=== PATIENT | female | born 1985 | race Caucasian/White ===

== ENCOUNTER 2017-03-19 01:34 | Emergency (ER) | payer MEDICAID ==
[~2017-03-19] VITALS: Ht 170.2 cm; Wt 78.1 kg
[~2017-03-19 01:34] MED LIST: LANTUS100 MG/ML SC; LEVOTHYROXIN125 MCG PO; NOVOLOG100 IU/1 M SC; TESSALON PER100 MG PO; ZPAK PO
[2017-03-19] MEDS ORDERED: LANTUS100 UNIT/M SC (01:48)
[2017-03-19 02:58] LABS: HEMATOCRIT 34.4 % (37.0-47.0); HEMOGLOBIN 11.6 g/dl (12.0-16.0); IMMATURE GRANULOCYTES 0.2 % (0.0-1.0); MEAN CELL VOLUME 89.4 fL CALC (80.0-100.0); MEAN CORPUSCULAR HGB 30.1 pG CALC (26.0-32.0); MEAN CORPUSCULAR HGB CONC 33.7 g/L CALC (32.0-36.0); NEUT# 4.32 thou/uL (2.00-7.15); RED BLOOD COUNT 3.85 mill/uL (4.20-5.60)
[2017-03-19 03:19] LABS: URINE BILIRUBIN - DIPSTICK NEGATIVE (NEGATIVE); URINE BLOOD DIPSTICK MODERATE (NEGATIVE); URINE CLARITY CLEAR; URINE COLOR YELLOW; URINE GLUCOSE - DIPSTICK 250 mg/dL (NEGATIVE); URINE KETONE NEGATIVE (NEGATIVE); URINE LEUK ESTERASE NEGATIVE (NEGATIVE); URINE NITRITE - DIPSTICK NEGATIVE (Negative); URINE PROTEIN - DIPSTICK NEGATIVE (NEG-TRACE); URINE UROBILINOGEN - DIPSTICK 0.2 E.U./dL (0.2)
[2017-03-19 03:19] LABS: ALBUMIN 4.4 g/dL (3.2-5.0); ALKALINE PHOSPHATASE 53 u/l (38-126); ANION GAP 16 (6-22 (CALC)); BILIRUBIN, TOTAL 0.4 mg/dL (0.0-1.4); BUN 16 mg/dL (7-17); BUN/CREATININE RATIO 25 (12-20 (CALC)); CALCIUM 9.6 mg/dL (8.4-10.2); CARBON DIOXIDE 26 mmol/l (22-30); CHLORIDE 103 mmol/l (95-108); CREATININE 0.6 mg/dL (0.5-1.0); GFR > 60 ML/MIN (>=60 (CALC)); GFR FOR AFR.AMER. > 60 ML/MIN (>=60 (CALC)); GLUCOSE 201 mg/dL (65-105); POTASSIUM 4.2 mmol/l (3.5-5.1); SGOT/AST 24 u/l (14-36); SGPT/ALT 29 u/l (9-52); SODIUM 141 mmol/l (137-146); TOTAL PROTEIN 7.6 g/dL (6.3-8.2)
[2017-03-19 03:47] LABS: URINE MUCUS FEW hpf (NONE-FEW); URINE RBC 0-2 RBC/hpf (0-5); URINE SQUAMOUS EPITHELIAL CELL FEW EPI/hpf (0-FEW); URINE WBC 0-2 WBC/hpf (0-5)
[2017-03-19] MEDS ORDERED: ULTRAM50 M1 PO (04:28)
[2017-03-19 04:54] VITALS: BP 98/59
== END 2017-03-19 04:55 | disposition home or self-care (01) | DRG 761 ==
LOC: ED 01:34
DX: N94.6 Dysmenorrhea, unspecified (principal); E07.9 Disorder of thyroid, unspecified; E11.9 Type 2 diabetes mellitus without complications; F17.210 Nicotine dependence, cigarettes, uncomplicated; K76.9 Liver disease, unspecified
CPT/HCPCS: Q9967

== ENCOUNTER 2017-07-24 12:11 | Inpatient (IN) | payer MEDICAID ==
[~2017-07-24] VITALS: Ht 170.2 cm; Wt 80.0 kg
[~2017-07-24 12:11] MED LIST changes: +LANTUS100 UNIT/M SC; +ULTRAM50 M1 PO
[2017-07-24] MEDS ORDERED: LEVOTHYROXIN125 MCG PO ×2 (12:20→13:12)
--- NOTE | 2017-07-24 12:20 | NUR ---
PT TO ROOM FOR TREATMENT IN STABE CONDITION
--- NOTE | 2017-07-24 12:30 | NUR ---
INTRODUCED SELF TO PT. PT REPORT WEAKNESS AND N/V X 1 DAY AFTER NOT HAVING INSULIN FOR 4 DAYS. ACCU CHECK 419 UPON ARRIVAL. PATIENT VSS. MD AWARE OF PT CONDITION.
--- NOTE | 2017-07-24 12:40 | NUR ---
PATIENT WAS WHEELED TO THE BATHROOM. URINE SPECIMEN OBTAINED. PATIENT REPORTING VAGINAL BLEEDING. LMP WAS 07/12/17. NOTIFIED.
[2017-07-24 13:06] LABS: HEMATOCRIT 37.2 % (37.0-47.0); HEMOGLOBIN 12.7 g/dl (12.0-16.0); IMMATURE GRANULOCYTES 0.4 % (0.0-1.0); MEAN CELL VOLUME 89.6 fL CALC (80.0-100.0); MEAN CORPUSCULAR HGB 30.6 pG CALC (26.0-32.0); MEAN CORPUSCULAR HGB CONC 34.1 g/L CALC (32.0-36.0); RED BLOOD COUNT 4.15 mill/uL (4.20-5.60); RED CELL DISTRI WIDTH 12.4 % (11.5-15.5)
[2017-07-24] MEDS ORDERED: HUMULIN 70/30 SC (13:14)
--- NOTE | 2017-07-24 13:15 | NUR ---
PATIENT RESTING COMFORTABLY IN STRETCHER, REPORTS CONTINUED WEAKNESS, DENIES ANY NAUSEA AT THIS TIME. PATIENT AWARE OF PENDING RESULTS. WILL CONTINUE TO MONITOR.
[2017-07-24 13:19] LABS: ALBUMIN 5.2 g/dL (3.2-5.0); ALKALINE PHOSPHATASE 84 u/l (38-126); BILIRUBIN, TOTAL 0.6 mg/dL (0.0-1.4); BUN 16 mg/dL (7-17); BUN/CREATININE RATIO 21 (12-20 (CALC)); CALCIUM 9.3 mg/dL (8.4-10.2); CHLORIDE 101 mmol/l (95-108); CREATININE 0.8 mg/dL (0.5-1.0); GFR > 60 ML/MIN (>=60 (CALC)); GFR FOR AFR.AMER. > 60 ML/MIN (>=60 (CALC)); GLUCOSE 448 mg/dL (65-105); LIPASE 49 u/l (23-300); POTASSIUM 4.7 mmol/l (3.5-5.1); SGOT/AST 28 u/l (14-36); SGPT/ALT 37 u/l (9-52); SODIUM 136 mmol/l (137-146); TOTAL PROTEIN 8.6 g/dL (6.3-8.2)
[2017-07-24 13:19] LABS: URINE BLOOD DIPSTICK LARGE (NEGATIVE); URINE COLOR YELLOW; URINE GLUCOSE - DIPSTICK >=1000 mg/dL (NEGATIVE); URINE KETONE >=80 mg/dL (NEGATIVE); URINE LEUK ESTERASE NEGATIVE (NEGATIVE); URINE NITRITE - DIPSTICK NEGATIVE (Negative); URINE PH 5.5 (4.5-8.0); URINE PROTEIN - DIPSTICK TRACE mg/dL (NEG-TRACE); URINE SPECIFIC GRAVITY 1.025; URINE UROBILINOGEN - DIPSTICK 0.2 E.U./dL (0.2)
[2017-07-24 13:26] LABS: URINE BILIRUBIN - DIPSTICK SMALL (NEGATIVE); URINE CLARITY SLIGHT CLOUDY
[2017-07-24 13:26] LABS: ANION GAP 32 (6-22 (CALC)); CARBON DIOXIDE 8 mmol/l (22-30)
[2017-07-24 13:29] LABS: URINE EPITHELIAL CELLS MODERATE EPI/hpf (0-FEW)
[2017-07-24 13:30] LABS: URINE RBC 25-50 RBC/hpf (0-5)
--- NOTE | 2017-07-24 13:52 | NUR ---
PATIENT FAMILY AT BEDSIDE. PATIENT DENIES ANY NEEDS AT THIS TIME. CALL WHITE WITHIN REACH.
--- NOTE | 2017-07-24 14:18 | NUR ---
IV FLUIDS INFUSING AT 999 MLS/HR WITH NO DIFFICULTY. IV SITE FREE FROM REDNESS OR EDEMA. PATIENT AWARE OF PENDING ADMISSION. WILL CONTINUE TO MONITOR.
--- NOTE | 2017-07-24 14:37 | NUR ---
ACCUCHECK 393, IV REGULAR INSULIN STARTED AT 4 UNITS/HR. PATIENT AWARE OF WAIT TIME AND PENDING ADMISSION.
--- NOTE | 2017-07-24 14:58 | NUR ---
REPORT CALLED TO ALBERTO ALFARO IN ICU.
--- NOTE | 2017-07-24 15:05 | NUR ---
DR FRAZIER AT BEDSIDE.
--- NOTE | 2017-07-24 15:14 | NUR ---
ASSISSTED PT TO BEDSIDE COMMODE.
[2017-07-24 15:20] LABS: POTASSIUM 4.8 mmol/l (3.5-5.1)
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
[2017-07-24 15:30] VITALS: BP 102/73
--- NOTE | 2017-07-24 15:32 | NUR ---
Admission Note Report Given to: ALBERTO ALFARO Transported by: Wheelchair X Stretcher Transported with: X Nurse Transporter X Patent IV O2 X Stockroom Inventory Clerk PATIENT TRANSPORTED TO ICU BED 8. BEDSIDE REPORT GIVEN TO JONAS HUERTA LPN. PATIENT ALERT AND ORIENTED X 3.
[2017-07-24 15:45] VITALS: BP 99/65
[2017-07-24 16:00] VITALS: BP 98/66
[2017-07-24 16:15] VITALS: BP 99/64
--- NOTE | 2017-07-24 16:49 | NUR ---
PT RESTING OFFERS NO NEW COMPLAINTS, TELE CONTINUES TO READ SR RATE IN THE 70'S BP SLIGHTYL HYPOTENSIVE, TRENDING SAME IN ER. NOTIFIED OF LAB WORK EARLIER, ORDERS ALREADY IN PLACE.
--- NOTE | 2017-07-24 18:05 | NUR ---
PT REMAINS NPO EXCEPT WATER, IVF CONTINUE AT PRESCRIBED RATE AND INSULIN GTT CONTINUES PER PROTOCOL, CALL WHITE WITHIN REACH. ORAL FLUIDS (WATER) PROVIDED AT PT REQUEST.
[2017-07-24 19:02] LABS: POTASSIUM 3.5 mmol/l (3.5-5.1)
--- NOTE | 2017-07-24 19:05 | NUR ---
awake. denies c/o. air conditioning unit tester shows sinus rhythm. #20 [place] infusing. awaiting new ivf order to be put in computor by [facility]. up to [facility]. voided well. fall precautions cont.
--- NOTE | 2017-07-24 19:40 | NUR ---
neeta @ [facility] called. requested new order for ivf that was faxed @ [phone] be put in computor. admits "system down right now." motor vehicles supervisor notified of need for ivf.
[2017-07-24 20:00] VITALS: BP 95/59
--- NOTE | 2017-07-24 20:50 | NUR ---
dr daugherty called this newswriter. updated on pts condition. orders rec'd.
--- NOTE | 2017-07-24 21:00 | NUR ---
turkey sandwich given as requested.
--- NOTE | 2017-07-24 22:00 | NUR ---
watching tv. no distress. playground monitor shows sinus rhythm.
[2017-07-24 23:00] VITALS: BP 102/65
--- NOTE | 2017-07-24 23:16 | NUR ---
lab here. blood drawn.
[2017-07-24 23:36] LABS: POTASSIUM 4.2 mmol/l (3.5-5.1)
[2017-07-25] VITALS (14 sets, daily range): BP systolic 81–107; BP diastolic 48–70
--- NOTE | 2017-07-25 00:01 | NUR ---
eyes closed. no distress. youth nutritional monitor shows sinus rhythm.
--- NOTE | 2017-07-25 02:00 | NUR ---
resting quietly. resps even & unlabored. no apparent distress.
--- NOTE | 2017-07-25 04:00 | NUR ---
lab here. blood drawn.
[2017-07-25 04:26] LABS: HEMATOCRIT 31.7 % (37.0-47.0); HEMOGLOBIN 10.9 g/dl (12.0-16.0); MEAN CELL VOLUME 89.3 fL CALC (80.0-100.0); MEAN CORPUSCULAR HGB 30.7 pG CALC (26.0-32.0); MEAN CORPUSCULAR HGB CONC 34.4 g/L CALC (32.0-36.0); RED BLOOD COUNT 3.55 mill/uL (4.20-5.60); RED CELL DISTRI WIDTH 12.5 % (11.5-15.5)
[2017-07-25 04:37] LABS: ANION GAP 17 (6-22 (CALC)); BUN 10 mg/dL (7-17); BUN/CREATININE RATIO 17 (12-20 (CALC)); CALCIUM 8.3 mg/dL (8.4-10.2); CALCULATED LDLCHOLESTEROL 159 mg/dL (62-129 (CALC)); CARBON DIOXIDE 12 mmol/l (22-30); CHLORIDE 111 mmol/l (95-108); CHOLESTEROL HDL RATIO 5.2 (<4.4 (CALC)); CREATININE 0.6 mg/dL (0.5-1.0); GFR > 60 ML/MIN (>=60 (CALC)); GFR FOR AFR.AMER. > 60 ML/MIN (>=60 (CALC)); GLUCOSE 307 mg/dL (65-105); HDL CHOLESTEROL 44 mg/dL (>=40); SODIUM 135 mmol/l (137-146); TOTAL CHOLESTEROL 226 mg/dl (0-199); TOTAL TRIGLYCERIDES 117 mg/dl (30-149); VLDL CHOLESTROL 23 mg/dl (1-41 (CALC))
--- NOTE | 2017-07-25 05:53 | NUR ---
NO ACUTE CHANGE IN CONDITION THIS SHIFT. MONITOR SHOWS SINUS RHYTHM.
--- NOTE | 2017-07-25 06:45 | NUR ---
REPORT RECEIVED FROM ARI CORTEZ. PT RESTING QUIETLY WITH EYES CLOSED. AROUSES EASILY. ACCUCHECK IS 383. 5 UNITS OF NOVOLOG GIVEN. NS IV FLUIDS RESTARTED WELL. PT AMBULATORY TO [facility]. CALL LIGHT WITHIN REACH. INSTRUCTED PT TO CALL FOR ASSISTANCE. STATES UNDERSTANDING.
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
[2017-07-25 12:33] LABS: POTASSIUM 4.1 mmol/l (3.5-5.1)
[2017-07-25] MEDS ORDERED: LANTUS100 UNIT/M SC (13:00)
[2017-07-25] MEDS ORDERED: ADLT ASA LOW81 MG PO (13:00)
[2017-07-25] MEDS ORDERED: LIPITOR20 MG PO (13:00)
[2017-07-25] MEDS ORDERED: NOVOLOG FL100 UNIT/M SC (13:00)
== END 2017-07-25 14:01 | disposition home or self-care (01) | DRG 639 ==
LOC: ED 12:11 → ED-I 13:12 → ED 14:33 → ICU 14:34
PROVIDERS: Family Medicine; ADMIT Internal Medicine; ATTEND Internal Medicine
DX: E10.10 Type 1 diabetes mellitus with ketoacidosis without coma (principal); E03.9 Hypothyroidism, unspecified; E78.5 Hyperlipidemia, unspecified; F17.210 Nicotine dependence, cigarettes, uncomplicated; Z59.1 Inadequate housing; Z79.4 Long term (current) use of insulin

== ENCOUNTER 2017-10-23 13:26 | Emergency (ER) | payer MEDICAID ==
[~2017-10-23] VITALS: Ht 170.2 cm; Wt 80.0 kg
[~2017-10-23 13:26] MED LIST changes: +ADLT ASA LOW81 MG PO; +HUMULIN 70/30 SC; +LIPITOR20 MG PO; +NOVOLOG FL100 UNIT/M SC
[2017-10-23 14:36] LABS: HEMATOCRIT 33.3 % (37.0-47.0); HEMOGLOBIN 11.2 g/dl (12.0-16.0); IMMATURE GRANULOCYTES 0.3 % (0.0-1.0); MEAN CORPUSCULAR HGB 31.3 pG CALC (26.0-32.0); MEAN CORPUSCULAR HGB CONC 33.6 g/L CALC (32.0-36.0); NEUT# 6.6 thou/uL (2.00-7.15); RED BLOOD COUNT 3.58 mill/uL (4.20-5.60); RED CELL DISTRI WIDTH 13.2 % (11.5-15.5)
[2017-10-23 14:38] LABS: URINE BILIRUBIN - DIPSTICK NEGATIVE (NEGATIVE); URINE BLOOD DIPSTICK MODERATE (NEGATIVE); URINE COLOR YELLOW; URINE GLUCOSE - DIPSTICK >=1000 mg/dL (NEGATIVE); URINE KETONE 15 mg/dL (NEGATIVE); URINE LEUK ESTERASE NEGATIVE (NEGATIVE); URINE NITRITE - DIPSTICK NEGATIVE (Negative); URINE PH 5.5 (4.5-8.0); URINE PROTEIN - DIPSTICK NEGATIVE (NEG-TRACE); URINE SPECIFIC GRAVITY 1.015; URINE UROBILINOGEN - DIPSTICK 0.2 E.U./dL (0.2)
[2017-10-23 14:39] LABS: URINE CLARITY CLEAR
[2017-10-23 14:42] LABS: BARBITURATES NEGATIVE (NEGATIVE); COCAINE NEGATIVE (NEGATIVE); METHADONE NEGATIVE (NEGATIVE); OXCYCODONE NEGATIVE (NEGATIVE); TETRAHYDROCANNABIONOL NEGATIVE (NEGATIVE); TRICYLIC ANTIDEPRESSANTS NEGATIVE (NEGATIVE)
[2017-10-23 14:48] LABS: URINE SQUAMOUS EPITHELIAL CELL FEW EPI/hpf (0-FEW); URINE WBC 0-2 WBC/hpf (0-5)
[2017-10-23 14:50] LABS: ALBUMIN 4.2 g/dL (3.2-5.0); ALKALINE PHOSPHATASE 98 u/l (38-126); AMYLASE < 30 u/l (30-110); ANION GAP 16 (6-22 (CALC)); BILIRUBIN, TOTAL 0.3 mg/dL (0.0-1.4); BUN 17 mg/dL (7-17); BUN/CREATININE RATIO 24 (12-20 (CALC)); CALCIUM 9.4 mg/dL (8.4-10.2); CARBON DIOXIDE 24 mmol/l (22-30); CHLORIDE 102 mmol/l (95-108); CREATININE 0.7 mg/dL (0.5-1.0); GFR > 60 ML/MIN (>=60 (CALC)); GFR FOR AFR.AMER. > 60 ML/MIN (>=60 (CALC)); LIPASE 99 u/l (23-300); SGOT/AST 39 u/l (14-36); SGPT/ALT 50 u/l (9-52); SODIUM 137 mmol/l (137-146); TOTAL PROTEIN 6.8 g/dL (6.3-8.2)
[2017-10-23 14:54] LABS: GLUCOSE 544 mg/dL (65-105)
[2017-10-23] MEDS ORDERED: ULTRAM50 M1 PO (18:11)
[2017-10-23] MEDS ORDERED: FLEXERIL PO (18:11)
[2017-10-23 19:36] VITALS: BP 113/71
== END 2017-10-23 19:47 | disposition home or self-care (01) | DRG 392 ==
LOC: ED 13:26
PROVIDERS: Emergency Medicine
DX: R10.31 Right lower quadrant pain (principal); E11.65 Type 2 diabetes mellitus with hyperglycemia; M79.1 Myalgia; Z79.4 Long term (current) use of insulin; F17.210 Nicotine dependence, cigarettes, uncomplicated

== ENCOUNTER 2018-02-02 13:38 | Emergency (ER) | payer MEDICAID ==
[~2018-02-02] VITALS: Ht 170.2 cm; Wt 80.0 kg
[~2018-02-02 13:38] MED LIST changes: +FLEXERIL PO
[2018-02-02 14:18] LABS: HEMATOCRIT 33.6 % (37.0-47.0); HEMOGLOBIN 11.4 g/dl (12.0-16.0); IMMATURE GRANULOCYTES 0.3 % (0.0-1.0); MEAN CELL VOLUME 91.6 fL CALC (80.0-100.0); MEAN CORPUSCULAR HGB 31.1 pG CALC (26.0-32.0); MEAN CORPUSCULAR HGB CONC 33.9 g/L CALC (32.0-36.0); NEUT# 4.86 thou/uL (2.00-7.15); RED BLOOD COUNT 3.67 mill/uL (4.20-5.60); RED CELL DISTRI WIDTH 13.1 % (11.5-15.5)
[2018-02-02 14:41] LABS: ANION GAP 20 (6-22 (CALC)); BUN 21 mg/dL (7-17); BUN/CREATININE RATIO 39 (12-20 (CALC)); CARBON DIOXIDE 19 mmol/l (22-30); CHLORIDE 104 mmol/l (95-108); CREATININE 0.5 mg/dL (0.5-1.0); GFR > 60 ML/MIN (>=60 (CALC)); GFR FOR AFR.AMER. > 60 ML/MIN (>=60 (CALC)); POTASSIUM 4.4 mmol/l (3.5-5.1); SODIUM 139 mmol/l (137-146)
[2018-02-02 15:26] VITALS: BP 120/70
[2018-02-03] MEDS ORDERED: MOTRIN400 MG PO (19:56)
== END 2018-02-02 15:44 | disposition home or self-care (01) | DRG 206 ==
LOC: ED 13:38
PROVIDERS: Family Medicine
DX: M94.0 Chondrocostal junction syndrome [Tietze] (principal); E11.9 Type 2 diabetes mellitus without complications; F17.290 Nicotine dependence, other tobacco product, uncomplicated; R06.02 Shortness of breath; R11.10 Vomiting, unspecified; Z79.4 Long term (current) use of insulin

== ENCOUNTER 2018-02-03 15:41 | Emergency (ER) | payer MEDICAID ==
[~2018-02-03] VITALS: Ht 170.2 cm; Wt 80.5 kg
[2018-02-03 16:19] LABS: HEMATOCRIT 34.4 % (37.0-47.0); HEMOGLOBIN 11.7 g/dl (12.0-16.0); IMMATURE GRANULOCYTES 0.4 % (0.0-1.0); MEAN CELL VOLUME 91.2 fL CALC (80.0-100.0); NEUT# 5.46 thou/uL (2.00-7.15); RED BLOOD COUNT 3.77 mill/uL (4.20-5.60); RED CELL DISTRI WIDTH 13.1 % (11.5-15.5)
[2018-02-03 16:33] LABS: URINE BILIRUBIN - DIPSTICK NEGATIVE (NEGATIVE); URINE BLOOD DIPSTICK NEGATIVE (NEGATIVE); URINE COLOR YELLOW; URINE GLUCOSE - DIPSTICK >=1000 mg/dL (NEGATIVE); URINE KETONE 15 mg/dL (NEGATIVE); URINE LEUK ESTERASE NEGATIVE (NEGATIVE); URINE NITRITE - DIPSTICK NEGATIVE (Negative); URINE PH 5.5 (4.5-8.0); URINE PROTEIN - DIPSTICK NEGATIVE (NEG-TRACE); URINE SPECIFIC GRAVITY 1.025; URINE UROBILINOGEN - DIPSTICK 0.2 E.U./dL (0.2)
[2018-02-03 16:36] LABS: URINE CLARITY CLEAR
[2018-02-03 16:41] LABS: ANION GAP 17 (6-22 (CALC)); BUN 18 mg/dL (7-17); BUN/CREATININE RATIO 32 (12-20 (CALC)); CARBON DIOXIDE 24 mmol/l (22-30); CHLORIDE 105 mmol/l (95-108); CREATININE 0.6 mg/dL (0.5-1.0); GFR > 60 ML/MIN (>=60 (CALC)); GFR FOR AFR.AMER. > 60 ML/MIN (>=60 (CALC)); POTASSIUM 3.9 mmol/l (3.5-5.1); SODIUM 142 mmol/l (137-146)
[2018-02-03] MEDS ORDERED: MOTRIN400 MG PO (19:56)
[2018-02-03 20:25] VITALS: BP 109/70
== END 2018-02-03 20:08 | disposition home or self-care (01) | DRG 313 ==
LOC: ED 15:41
PROVIDERS: Family Medicine
DX: R07.89 Other chest pain (principal); F17.290 Nicotine dependence, other tobacco product, uncomplicated; M94.0 Chondrocostal junction syndrome [Tietze]; R42 Dizziness and giddiness; R00.0 Tachycardia, unspecified

== ENCOUNTER 2018-08-22 22:40 | Emergency (ER) | payer MEDICAID ==
[~2018-08-22] VITALS: Ht 175.3 cm; Wt 85.8 kg
[~2018-08-22 22:40] MED LIST changes: +MOTRIN400 MG PO
[2018-08-22] MEDS ORDERED: ATORVASTATIN CA20 MG PO (22:48)
[2018-08-22] MEDS ORDERED: MOTRIN800 MG PO (22:59)
[2018-08-22] MEDS ORDERED: KEFLEX500 M1 PO (22:59)
[2018-08-22 23:08] VITALS: BP 133/84
== END 2018-08-22 23:08 | disposition home or self-care (01) ==
LOC: ED 22:40
DX: L60.0 Ingrowing nail (principal); L03.031 Cellulitis of right toe

== ENCOUNTER 2018-10-24 15:58 | Emergency (ER) | payer MEDICAID ==
[~2018-10-24] VITALS: Ht 175.3 cm; Wt 82.0 kg
[~2018-10-24 15:58] MED LIST changes: +ATORVASTATIN CA20 MG PO; +KEFLEX500 M1 PO; +MOTRIN800 MG PO
[2018-10-24] MEDS ORDERED: NAPROXEN375 MG PO (16:13)
[2018-10-24] MEDS ORDERED: AMLODIPINE5 MG PO (16:13)
[2018-10-24 16:36] LABS: HEMATOCRIT 35.7 % (37.0-47.0); HEMOGLOBIN 12.3 g/dl (12.0-16.0); IMMATURE GRANULOCYTES 0.3 % (0.0-5.0); MEAN CELL VOLUME 91.8 fL CALC (80.0-100.0); MEAN CORPUSCULAR HGB 31.6 pG CALC (26.0-32.0); MEAN CORPUSCULAR HGB CONC 34.5 g/L CALC (32.0-36.0); NEUT# 4.69 thou/uL (2.00-7.15); RED BLOOD COUNT 3.89 mill/uL (4.20-5.60); RED CELL DISTRI WIDTH 13.2 % (11.5-15.5)
[2018-10-24 17:27] LABS: ALBUMIN 4.4 g/dL (3.2-5.0); ALKALINE PHOSPHATASE 101 u/l (38-126); ANION GAP 16 (6-22 (CALC)); BILIRUBIN, TOTAL 0.3 mg/dL (0.0-1.4); BUN 19 mg/dL (7-17); BUN/CREATININE RATIO 30 (12-20 (CALC)); CARBON DIOXIDE 24 mmol/l (22-30); CHLORIDE 103 mmol/l (95-108); CREATININE 0.6 mg/dL (0.5-1.0); GFR > 60 ML/MIN (>=60 (CALC)); GFR FOR AFR.AMER. > 60 ML/MIN (>=60 (CALC)); POTASSIUM 3.8 mmol/l (3.5-5.1); SGOT/AST 32 u/l (14-36); SODIUM 138 mmol/l (137-146); TOTAL PROTEIN 7.6 g/dL (6.3-8.2)
[2018-10-24] MEDS ORDERED: TAM75CAP PO (17:31)
[2018-10-24] MEDS ORDERED: AMOXICILLIN500 MG PO (17:31)
[2018-10-24 17:47] VITALS: BP 106/70
== END 2018-10-24 17:55 | disposition home or self-care (01) ==
LOC: ED 15:58
PROVIDERS: Emergency Medicine
DX: J10.1 Influenza due to other identified influenza virus with other respiratory manifestations (principal); J02.0 Streptococcal pharyngitis; R53.1 Weakness; R50.9 Fever, unspecified; R11.10 Vomiting, unspecified; R05 Cough; F17.210 Nicotine dependence, cigarettes, uncomplicated; R06.02 Shortness of breath

== ENCOUNTER 2018-10-26 18:31 | Emergency (ER) | payer MEDICAID ==
[~2018-10-26] VITALS: Ht 175.3 cm; Wt 81.8 kg
[~2018-10-26 18:31] MED LIST changes: +AMLODIPINE5 MG PO; +AMOXICILLIN500 MG PO; +NAPROXEN375 MG PO; +TAM75CAP PO
[2018-10-26 19:59] LABS: HEMATOCRIT 33.9 % (37.0-47.0); HEMOGLOBIN 11.5 g/dl (12.0-16.0); IMMATURE GRANULOCYTES 0.2 % (0.0-5.0); MEAN CELL VOLUME 92.1 fL CALC (80.0-100.0); MEAN CORPUSCULAR HGB 31.3 pG CALC (26.0-32.0); MEAN CORPUSCULAR HGB CONC 33.9 g/L CALC (32.0-36.0); NEUT# 2.12 thou/uL (2.00-7.15); RED BLOOD COUNT 3.68 mill/uL (4.20-5.60); RED CELL DISTRI WIDTH 13.1 % (11.5-15.5)
[2018-10-26 20:14] LABS: ALBUMIN 3.8 g/dL (3.2-5.0); ALKALINE PHOSPHATASE 77 u/l (38-126); ANION GAP 15 (6-22 (CALC)); BILIRUBIN, TOTAL 0.6 mg/dL (0.0-1.4); BUN 14 mg/dL (7-17); BUN/CREATININE RATIO 33 (12-20 (CALC)); CARBON DIOXIDE 26 mmol/l (22-30); CHLORIDE 97 mmol/l (95-108); CREATININE 0.4 mg/dL (0.5-1.0); GFR > 60 ML/MIN (>=60 (CALC)); GFR FOR AFR.AMER. > 60 ML/MIN (>=60 (CALC)); SGOT/AST 44 u/l (14-36); SODIUM 133 mmol/l (137-146); TOTAL PROTEIN 6.9 g/dL (6.3-8.2)
[2018-10-26 20:21] LABS: POTASSIUM 5.2 mmol/l (3.5-5.1)
[2018-10-26 22:13] LABS: URINE BILIRUBIN - DIPSTICK NEGATIVE (NEGATIVE); URINE BLOOD DIPSTICK NEGATIVE (NEGATIVE); URINE COLOR YELLOW; URINE GLUCOSE - DIPSTICK >=1000 mg/dL (NEGATIVE); URINE KETONE 15 mg/dL (NEGATIVE); URINE LEUK ESTERASE TRACE (NEGATIVE); URINE NITRITE - DIPSTICK NEGATIVE (Negative); URINE PROTEIN - DIPSTICK NEGATIVE (NEG-TRACE); URINE UROBILINOGEN - DIPSTICK 0.2 E.U./dL (0.2)
[2018-10-26] MEDS ORDERED: ZOFRAN ODT4 MG PO (22:52)
[2018-10-26 23:05] VITALS: BP 118/67
== END 2018-10-26 23:14 | disposition home or self-care (01) ==
LOC: ED 18:31
PROVIDERS: Emergency Medicine
DX: J10.1 Influenza due to other identified influenza virus with other respiratory manifestations (principal); J02.0 Streptococcal pharyngitis; R11.2 Nausea with vomiting, unspecified; R50.9 Fever, unspecified; R05 Cough; R06.02 Shortness of breath; R19.7 Diarrhea, unspecified

== ENCOUNTER 2019-02-09 18:14 | Emergency (ER) | payer OTHER ==
[~2019-02-09] VITALS: Ht 170.2 cm; Wt 82.3 kg
[~2019-02-09 18:14] MED LIST changes: +ZOFRAN ODT4 MG PO
[2019-02-09 19:06] LABS: URINE BILIRUBIN - DIPSTICK NEGATIVE (NEGATIVE); URINE BLOOD DIPSTICK TRACE-INTACT (NEGATIVE); URINE COLOR YELLOW; URINE GLUCOSE - DIPSTICK >=1000 mg/dL (NEGATIVE); URINE KETONE TRACE mg/dL (NEGATIVE); URINE LEUK ESTERASE NEGATIVE (NEGATIVE); URINE NITRITE - DIPSTICK NEGATIVE (Negative); URINE PROTEIN - DIPSTICK NEGATIVE (NEG-TRACE); URINE UROBILINOGEN - DIPSTICK 0.2 E.U./dL (0.2)
[2019-02-09 19:13] LABS: HEMOGLOBIN 12.2 g/dl (12.0-16.0); IMMATURE GRANULOCYTES 0.5 % (0.0-5.0); MEAN CELL VOLUME 90.9 fL CALC (80.0-100.0); NEUT# 8.39 thou/uL (2.00-7.15); RED BLOOD COUNT 4.07 mill/uL (4.20-5.60); RED CELL DISTRI WIDTH 13.2 % (11.5-15.5)
[2019-02-09 19:24] LABS: ALBUMIN 4.9 g/dL (3.2-5.0); ALKALINE PHOSPHATASE 109 u/l (38-126); ANION GAP 16 (6-22 (CALC)); BILIRUBIN, TOTAL 0.5 mg/dL (0.0-1.4); BUN 18 mg/dL (7-17); BUN/CREATININE RATIO 31 (12-20 (CALC)); CARBON DIOXIDE 27 mmol/l (22-30); CHLORIDE 102 mmol/l (95-108); CREATININE 0.6 mg/dL (0.5-1.0); GFR > 60 ML/MIN (>=60 (CALC)); GFR FOR AFR.AMER. > 60 ML/MIN (>=60 (CALC)); LIPASE 99 u/l (23-300); POTASSIUM 4.4 mmol/l (3.5-5.1); SGOT/AST 40 u/l (14-36); SODIUM 141 mmol/l (137-146); TOTAL PROTEIN 8.2 g/dL (6.3-8.2)
[2019-02-09] MEDS ORDERED: ULTRAM50 M1 PO (20:18)
[2019-02-09 20:38] VITALS: BP 132/97
== END 2019-02-09 20:53 | disposition home or self-care (01) ==
LOC: ED 18:14
PROVIDERS: Family Medicine
DX: R10.31 Right lower quadrant pain (principal); R10.32 Left lower quadrant pain; N94.3 Premenstrual tension syndrome; R11.2 Nausea with vomiting, unspecified; F17.210 Nicotine dependence, cigarettes, uncomplicated

== ENCOUNTER 2019-03-22 19:03 | Emergency (ER) | payer OTHER ==
[~2019-03-22] VITALS: Ht 170.2 cm; Wt 80.0 kg
[2019-03-22 19:56] LABS: URINE BILIRUBIN - DIPSTICK NEGATIVE (NEGATIVE); URINE BLOOD DIPSTICK LARGE (NEGATIVE); URINE COLOR YELLOW; URINE GLUCOSE - DIPSTICK >=1000 mg/dL (NEGATIVE); URINE KETONE 40 mg/dL (NEGATIVE); URINE LEUK ESTERASE NEGATIVE (Negative); URINE NITRITE - DIPSTICK NEGATIVE (Negative); URINE PROTEIN - DIPSTICK NEGATIVE (NEG-TRACE); URINE UROBILINOGEN - DIPSTICK 0.2 E.U./dL (0.2)
[2019-03-22 19:57] LABS: URINE CLARITY CLEAR
[2019-03-22 20:07] LABS: BARBITURATES NEGATIVE (NEGATIVE); COCAINE NEGATIVE (NEGATIVE); METHADONE NEGATIVE (NEGATIVE); OXCYCODONE NEGATIVE (NEGATIVE); TETRAHYDROCANNABIONOL NEGATIVE (NEGATIVE); TRICYLIC ANTIDEPRESSANTS NEGATIVE (NEGATIVE)
[2019-03-22 20:14] LABS: URINE RBC 25-50 RBC/hpf (0-5); URINE SQUAMOUS EPITHELIAL CELL FEW EPI/hpf (0-FEW)
[2019-03-22] MEDS ORDERED: MOTRIN400 MG PO (21:22)
[2019-03-22] MEDS ORDERED: FLEXERIL5 M1 PO (21:22)
[2019-03-22] MEDS ORDERED: MEDDOSEPAK PO (21:22)
[2019-03-22] MEDS ORDERED: TYLENOL500 MG PO (21:22)
[2019-03-22 21:30] VITALS: BP 113/73
== END 2019-03-22 21:30 | disposition home or self-care (01) ==
LOC: ED 19:03
DX: M54.5 Low back pain (principal); M47.816 Spondylosis without myelopathy or radiculopathy, lumbar region

== ENCOUNTER 2019-03-24 18:36 | Emergency (ER) | payer OTHER ==
[~2019-03-24] VITALS: Ht 2136.1 cm; Wt 81.0 kg
[~2019-03-24 18:36] MED LIST changes: +FLEXERIL5 M1 PO; +MEDDOSEPAK PO; +TYLENOL500 MG PO
[2019-03-24 20:09] LABS: HEMATOCRIT 33.2 % (37.0-47.0); HEMOGLOBIN 11.2 g/dl (12.0-16.0); IMMATURE GRANULOCYTES 0.4 % (0.0-5.0); MEAN CELL VOLUME 89.2 fL CALC (80.0-100.0); MEAN CORPUSCULAR HGB 30.1 pG CALC (26.0-32.0); MEAN CORPUSCULAR HGB CONC 33.7 g/L CALC (32.0-36.0); NEUT# 4.95 thou/uL (2.00-7.15); RED BLOOD COUNT 3.72 mill/uL (4.20-5.60); RED CELL DISTRI WIDTH 13.6 % (11.5-15.5)
[2019-03-24 20:22] LABS: ALBUMIN 4.3 g/dL (3.2-5.0); ALKALINE PHOSPHATASE 101 u/l (38-126); ANION GAP 12 (6-22 (CALC)); BILIRUBIN, TOTAL 0.5 mg/dL (0.0-1.4); BUN 14 mg/dL (7-17); BUN/CREATININE RATIO 23 (12-20 (CALC)); CARBON DIOXIDE 24 mmol/l (22-30); CHLORIDE 102 mmol/l (95-108); CREATININE 0.6 mg/dL (0.5-1.0); GFR > 60 ML/MIN (>=60 (CALC)); GFR FOR AFR.AMER. > 60 ML/MIN (>=60 (CALC)); POTASSIUM 3.6 mmol/l (3.5-5.1); SGOT/AST 31 u/l (14-36); SODIUM 135 mmol/l (137-146); TOTAL PROTEIN 7.2 g/dL (6.3-8.2)
[2019-03-24 20:47] LABS: URINE BLOOD DIPSTICK MODERATE (NEGATIVE); URINE COLOR YELLOW; URINE GLUCOSE - DIPSTICK >=1000 mg/dL (NEGATIVE); URINE KETONE 40 mg/dL (NEGATIVE); URINE LEUK ESTERASE NEGATIVE (NEGATIVE); URINE NITRITE - DIPSTICK NEGATIVE (Negative); URINE PROTEIN - DIPSTICK TRACE mg/dL (NEG-TRACE); URINE SPECIFIC GRAVITY 1.025; URINE UROBILINOGEN - DIPSTICK 0.2 E.U./dL (0.2)
[2019-03-24 20:50] LABS: URINE BILIRUBIN - DIPSTICK NEGATIVE (NEGATIVE)
[2019-03-24 20:51] LABS: BARBITURATES NEGATIVE (NEGATIVE); COCAINE NEGATIVE (NEGATIVE); METHADONE NEGATIVE (NEGATIVE); OXCYCODONE NEGATIVE (NEGATIVE); TETRAHYDROCANNABIONOL NEGATIVE (NEGATIVE); TRICYLIC ANTIDEPRESSANTS NEGATIVE (NEGATIVE)
[2019-03-24 20:52] LABS: TSH, 3RD GENERATION 15.5 uIU/mL (0.47 - 4.68)
[2019-03-24 21:02] LABS: URINE SQUAMOUS EPITHELIAL CELL FEW EPI/hpf (0-FEW); URINE WBC 0-2 WBC/hpf (0-5)
[2019-03-24] MEDS ORDERED: ZOFRAN ODT4 MG PO (21:08)
[2019-03-24] MEDS ORDERED: ANTIVERT PO (21:08)
[2019-03-24] MEDS ORDERED: MEDDOSEPAK PO (21:08)
[2019-03-24 21:56] VITALS: BP 101/61
== END 2019-03-24 21:56 | disposition home or self-care (01) ==
LOC: ED 18:36
PROVIDERS: Emergency Medicine
DX: R42 Dizziness and giddiness (principal); E03.9 Hypothyroidism, unspecified; E11.9 Type 2 diabetes mellitus without complications; I10 Essential (primary) hypertension; F17.210 Nicotine dependence, cigarettes, uncomplicated; R11.2 Nausea with vomiting, unspecified

== ENCOUNTER 2019-03-29 18:46 | Emergency (ER) | payer MEDICAID ==
[~2019-03-29] VITALS: Ht 172.7 cm; Wt 80.0 kg
[~2019-03-29 18:46] MED LIST changes: +ANTIVERT PO
[2019-03-29 19:41] LABS: URINE BILIRUBIN - DIPSTICK NEGATIVE (NEGATIVE); URINE BLOOD DIPSTICK SMALL (NEGATIVE); URINE COLOR YELLOW; URINE GLUCOSE - DIPSTICK >=1000 mg/dL (NEGATIVE); URINE KETONE 15 mg/dL (NEGATIVE); URINE LEUK ESTERASE NEGATIVE (NEGATIVE); URINE NITRITE - DIPSTICK NEGATIVE (Negative); URINE PROTEIN - DIPSTICK NEGATIVE (NEG-TRACE); URINE UROBILINOGEN - DIPSTICK 0.2 E.U./dL (0.2)
[2019-03-29 19:43] LABS: HEMATOCRIT 32.2 % (37.0-47.0); HEMOGLOBIN 10.8 g/dl (12.0-16.0); IMMATURE GRANULOCYTES 0.6 % (0.0-5.0); MEAN CELL VOLUME 90.2 fL CALC (80.0-100.0); MEAN CORPUSCULAR HGB 30.3 pG CALC (26.0-32.0); MEAN CORPUSCULAR HGB CONC 33.5 g/L CALC (32.0-36.0); NEUT# 6.23 thou/uL (2.00-7.15); RED BLOOD COUNT 3.57 mill/uL (4.20-5.60); RED CELL DISTRI WIDTH 13.8 % (11.5-15.5)
[2019-03-29 20:05] LABS: ALBUMIN 4.5 g/dL (3.2-5.0); ALKALINE PHOSPHATASE 101 u/l (38-126); AMYLASE 36 u/l (30-110); BILIRUBIN, TOTAL 0.6 mg/dL (0.0-1.4); BUN 18 mg/dL (7-17); BUN/CREATININE RATIO 28 (12-20 (CALC)); CHLORIDE 97 mmol/l (95-108); CREATININE 0.6 mg/dL (0.5-1.0); GFR > 60 ML/MIN (>=60 (CALC)); GFR FOR AFR.AMER. > 60 ML/MIN (>=60 (CALC)); LIPASE 81 u/l (23-300); SGOT/AST 46 u/l (14-36); SODIUM 132 mmol/l (137-146); TOTAL PROTEIN 7.4 g/dL (6.3-8.2)
[2019-03-29 20:12] LABS: ANION GAP 21 (6-22 (CALC)); CARBON DIOXIDE 18 mmol/l (22-30)
[2019-03-29 20:21] LABS: MYOGLOBIN 15 ng/mL (0 - 62)
[2019-03-29 20:26] LABS: URINE SQUAMOUS EPITHELIAL CELL FEW EPI/hpf (0-FEW)
[2019-03-29 22:34] LABS: BUN 15 mg/dL (7-17); BUN/CREATININE RATIO 29 (12-20 (CALC)); CHLORIDE 107 mmol/l (95-108); CREATININE 0.5 mg/dL (0.5-1.0); GFR > 60 ML/MIN (>=60 (CALC)); GFR FOR AFR.AMER. > 60 ML/MIN (>=60 (CALC)); POTASSIUM 3.4 mmol/l (3.5-5.1); SODIUM 137 mmol/l (137-146)
[2019-03-29 22:41] LABS: ANION GAP 9 (6-22 (CALC)); CARBON DIOXIDE 24 mmol/l (22-30)
[2019-03-30] MEDS ORDERED: ZOFRAN ODT4 MG PO (00:50)
[2019-03-30 01:30] VITALS: BP 106/67
== END 2019-03-30 01:30 | disposition home or self-care (01) ==
LOC: ED 18:46
PROVIDERS: Emergency Medicine
DX: E11.65 Type 2 diabetes mellitus with hyperglycemia (principal); E03.9 Hypothyroidism, unspecified; F17.210 Nicotine dependence, cigarettes, uncomplicated

== ENCOUNTER 2019-05-05 10:51 | Emergency (ER) | payer OTHER ==
[~2019-05-05] VITALS: Ht 172.7 cm; Wt 81.4 kg
[2019-05-05 11:49] LABS: HEMOGLOBIN 10.6 g/dl (12.0-16.0); IMMATURE GRANULOCYTES 0.3 % (0.0-5.0); MEAN CELL VOLUME 93.3 fL CALC (80.0-100.0); MEAN CORPUSCULAR HGB 30.9 pG CALC (26.0-32.0); MEAN CORPUSCULAR HGB CONC 33.1 g/L CALC (32.0-36.0); NEUT# 7.15 thou/uL (2.00-7.15); RED BLOOD COUNT 3.43 mill/uL (4.20-5.60); RED CELL DISTRI WIDTH 13.5 % (11.5-15.5)
[2019-05-05 11:50] LABS: URINE BILIRUBIN - DIPSTICK NEGATIVE (NEGATIVE); URINE BLOOD DIPSTICK NEGATIVE (NEGATIVE); URINE COLOR YELLOW; URINE GLUCOSE - DIPSTICK >=1000 mg/dL (NEGATIVE); URINE KETONE 40 mg/dL (NEGATIVE); URINE LEUK ESTERASE NEGATIVE (Negative); URINE NITRITE - DIPSTICK NEGATIVE (Negative); URINE PH 5.5 (4.5-8.0); URINE PROTEIN - DIPSTICK NEGATIVE (NEG-TRACE); URINE UROBILINOGEN - DIPSTICK 0.2 E.U./dL (0.2)
[2019-05-05 11:53] LABS: URINE CLARITY CLEAR
[2019-05-05 12:22] LABS: ALBUMIN 4.3 g/dL (3.2-5.0); ALKALINE PHOSPHATASE 94 u/l (38-126); ANION GAP 19 (6-22 (CALC)); BILIRUBIN, TOTAL 0.4 mg/dL (0.0-1.4); BUN 17 mg/dL (7-17); BUN/CREATININE RATIO 33 (12-20 (CALC)); CARBON DIOXIDE 20 mmol/l (22-30); CHLORIDE 100 mmol/l (95-108); CREATININE 0.5 mg/dL (0.5-1.0); GFR > 60 ML/MIN (>=60 (CALC)); GFR FOR AFR.AMER. > 60 ML/MIN (>=60 (CALC)); SGOT/AST 30 u/l (14-36); SODIUM 134 mmol/l (137-146); TOTAL PROTEIN 6.9 g/dL (6.3-8.2)
[2019-05-05 12:42] LABS: POTASSIUM 4.7 mmol/l (3.5-5.1)
[2019-05-05] MEDS ORDERED: [UNRECOGNIZED DRUG - SUPPLY] (14:15)
[2019-05-05] MEDS ORDERED: [UNRECOGNIZED DRUG - SUPPLY] (14:15)
[2019-05-05 14:23] VITALS: BP 110/80
== END 2019-05-05 14:38 | disposition home or self-care (01) ==
LOC: ED 10:51
DX: E11.65 Type 2 diabetes mellitus with hyperglycemia (principal); F17.210 Nicotine dependence, cigarettes, uncomplicated

== ENCOUNTER 2019-06-11 12:05 | Inpatient (IN) | payer OTHER ==
[~2019-06-11] VITALS: Ht 172.7 cm; Wt 84.0 kg
[~2019-06-11 12:05] MED LIST changes: +[UNRECOGNIZED DRUG - SUPPLY]; +[UNRECOGNIZED DRUG - SUPPLY]
[2019-06-11 12:50] LABS: HEMATOCRIT 34.3 % (37.0-47.0); HEMOGLOBIN 11.1 g/dl (12.0-16.0); IMMATURE GRANULOCYTES 0.6 % (0.0-5.0); MEAN CELL VOLUME 93.2 fL CALC (80.0-100.0); MEAN CORPUSCULAR HGB 30.2 pG CALC (26.0-32.0); MEAN CORPUSCULAR HGB CONC 32.4 g/L CALC (32.0-36.0); NEUT# 6.57 thou/uL (2.00-7.15); RED BLOOD COUNT 3.68 mill/uL (4.20-5.60); RED CELL DISTRI WIDTH 13.1 % (11.5-15.5)
[2019-06-11 13:21] LABS: ALKALINE PHOSPHATASE 106 u/l (38-126); ANION GAP 12 (6-22 (CALC)); BILIRUBIN, TOTAL 0.4 mg/dL (0.0-1.4); BUN 9 mg/dL (7-17); BUN/CREATININE RATIO 18 (12-20 (CALC)); CHLORIDE 100 mmol/l (95-108); CREATININE 0.5 mg/dL (0.5-1.0); GFR > 60 ML/MIN (>=60 (CALC)); GFR FOR AFR.AMER. > 60 ML/MIN (>=60 (CALC)); LIPASE 53 u/l (23-300); POTASSIUM 4.4 mmol/l (3.5-5.1); SGOT/AST 23 u/l (14-36); SODIUM 135 mmol/l (137-146); TOTAL PROTEIN 7.1 g/dL (6.3-8.2)
[2019-06-11 13:25] LABS: CARBON DIOXIDE 27 mmol/l (22-30)
[2019-06-11] MEDS ORDERED: NOVOLOG MIX SC (14:19)
[2019-06-11] MEDS ORDERED: LEVOTHYROXIN112 MC1 PO (14:20)
[2019-06-11] MEDS ORDERED: LANTUS100 UNIT/M SC (14:20)
[2019-06-11 14:33] LABS: URINE BILIRUBIN - DIPSTICK NEGATIVE (NEGATIVE); URINE BLOOD DIPSTICK NEGATIVE (NEGATIVE); URINE COLOR YELLOW; URINE GLUCOSE - DIPSTICK >=1000 mg/dL (NEGATIVE); URINE KETONE 15 mg/dL (NEGATIVE); URINE LEUK ESTERASE NEGATIVE (NEGATIVE); URINE NITRITE - DIPSTICK NEGATIVE (Negative); URINE PH 5.5 (4.5-8.0); URINE PROTEIN - DIPSTICK NEGATIVE (NEG-TRACE); URINE SPECIFIC GRAVITY 1.025; URINE UROBILINOGEN - DIPSTICK 0.2 E.U./dL (0.2)
[2019-06-11 16:30] VITALS: BP 109/74
[2019-06-11 19:13] VITALS: BP 94/56
[2019-06-12 03:55] VITALS: BP 90/59
[2019-06-12 05:36] LABS: HEMATOCRIT 28.8 % (37.0-47.0); HEMOGLOBIN 9.5 g/dl (12.0-16.0); MEAN CELL VOLUME 92.9 fL CALC (80.0-100.0); MEAN CORPUSCULAR HGB 30.6 pG CALC (26.0-32.0); RED BLOOD COUNT 3.1 mill/uL (4.20-5.60); RED CELL DISTRI WIDTH 13.1 % (11.5-15.5)
[2019-06-12 05:58] LABS: MAGNESIUM 1.6 mg/dL (1.6-2.3)
[2019-06-12 06:02] LABS: ANION GAP 9 (6-22 (CALC)); BUN 9 mg/dL (7-17); BUN/CREATININE RATIO 23 (12-20 (CALC)); CARBON DIOXIDE 25 mmol/l (22-30); CHLORIDE 108 mmol/l (95-108); CREATININE 0.4 mg/dL (0.5-1.0); GFR > 60 ML/MIN (>=60 (CALC)); GFR FOR AFR.AMER. > 60 ML/MIN (>=60 (CALC)); POTASSIUM 4.3 mmol/l (3.5-5.1); SODIUM 139 mmol/l (137-146)
[2019-06-12 07:50] VITALS: BP 116/76
[2019-06-12 15:00] VITALS: BP 107/72
[2019-06-12 19:33] VITALS: BP 119/78
[2019-06-13 04:14] VITALS: BP 96/65
[2019-06-13 05:30] LABS: HEMATOCRIT 26.6 % (37.0-47.0); HEMOGLOBIN 8.7 g/dl (12.0-16.0); IMMATURE GRANULOCYTES 0.4 % (0.0-5.0); MEAN CELL VOLUME 92.4 fL CALC (80.0-100.0); MEAN CORPUSCULAR HGB 30.2 pG CALC (26.0-32.0); MEAN CORPUSCULAR HGB CONC 32.7 g/L CALC (32.0-36.0); NEUT# 3.05 thou/uL (2.00-7.15); RED BLOOD COUNT 2.88 mill/uL (4.20-5.60)
[2019-06-13 06:06] LABS: ANION GAP 9 (6-22 (CALC)); BUN 7 mg/dL (7-17); BUN/CREATININE RATIO 17 (12-20 (CALC)); CARBON DIOXIDE 26 mmol/l (22-30); CHLORIDE 109 mmol/l (95-108); CREATININE 0.4 mg/dL (0.5-1.0); GFR > 60 ML/MIN (>=60 (CALC)); GFR FOR AFR.AMER. > 60 ML/MIN (>=60 (CALC)); POTASSIUM 4.1 mmol/l (3.5-5.1); SODIUM 139 mmol/l (137-146)
[2019-06-13 09:05] VITALS: BP 104/61
[2019-06-13 15:44] VITALS: BP 118/82
[2019-06-13 19:35] VITALS: BP 116/77
[2019-06-14 03:20] VITALS: BP 98/65
[2019-06-14 05:50] LABS: HEMATOCRIT 26.9 % (37.0-47.0); HEMOGLOBIN 8.7 g/dl (12.0-16.0); IMMATURE GRANULOCYTES 0.2 % (0.0-5.0); MEAN CELL VOLUME 92.4 fL CALC (80.0-100.0); MEAN CORPUSCULAR HGB 29.9 pG CALC (26.0-32.0); MEAN CORPUSCULAR HGB CONC 32.3 g/L CALC (32.0-36.0); NEUT# 2.07 thou/uL (2.00-7.15); RED BLOOD COUNT 2.91 mill/uL (4.20-5.60); RED CELL DISTRI WIDTH 12.7 % (11.5-15.5)
[2019-06-14 06:02] LABS: ANION GAP 11 (6-22 (CALC)); BUN 8 mg/dL (7-17); BUN/CREATININE RATIO 19 (12-20 (CALC)); CARBON DIOXIDE 27 mmol/l (22-30); CHLORIDE 102 mmol/l (95-108); CREATININE 0.4 mg/dL (0.5-1.0); GFR > 60 ML/MIN (>=60 (CALC)); GFR FOR AFR.AMER. > 60 ML/MIN (>=60 (CALC)); POTASSIUM 4.3 mmol/l (3.5-5.1); SODIUM 135 mmol/l (137-146)
[2019-06-14 08:00] VITALS: BP 120/75
[2019-06-14] MEDS ORDERED: IPRATROPIU0.5 MG/3 M NEB (10:33)
[2019-06-14] MEDS ORDERED: SYNTHROID125 MCG PO (10:33)
[2019-06-14] MEDS ORDERED: LEVAQUIN750 MG PO (10:33)
== END 2019-06-14 14:39 | disposition home or self-care (01) | DRG 195 ==
LOC: ED 12:05 → ED-I 15:02 → ED 15:27 → MS2 15:28
PROVIDERS: Family Medicine; Nurse Practitioner Family; ADMIT Internal Medicine; ATTEND Internal Medicine
PROC: 02HV33Z Insertion of Infusion Device into Superior Vena Cava, Percutaneous Approach (ICD-10-PCS; principal; 2019-06-11)
DX: J18.9 Pneumonia, unspecified organism (principal); E10.65 Type 1 diabetes mellitus with hyperglycemia; E03.9 Hypothyroidism, unspecified; D50.9 Iron deficiency anemia, unspecified; D63.8 Anemia in other chronic diseases classified elsewhere; J42 Unspecified chronic bronchitis; F17.200 Nicotine dependence, unspecified, uncomplicated; Z79.4 Long term (current) use of insulin
CPT/HCPCS: J0692; Q9967

== ENCOUNTER 2019-09-23 11:49 | Observation (INO) | payer MEDICAID ==
[~2019-09-23] VITALS: Ht 172.7 cm; Wt 75.0 kg
[~2019-09-23 11:49] MED LIST changes: +IPRATROPIU0.5 MG/3 M NEB; +LEVAQUIN750 MG PO; +LEVOTHYROXIN112 MC1 PO; +NOVOLOG MIX SC; +SYNTHROID125 MCG PO
[2019-09-23 12:54] LABS: IMMATURE GRANULOCYTES 0.6 % (0.0-5.0); MEAN CELL VOLUME 90.9 fL CALC (80.0-100.0); MEAN CORPUSCULAR HGB 30.1 pG CALC (26.0-32.0); NEUT# 11.18 thou/uL (2.00-7.15); RED BLOOD COUNT 3.86 mill/uL (4.20-5.60); RED CELL DISTRI WIDTH 13.8 % (11.5-15.5)
[2019-09-23 12:55] LABS: HEMATOCRIT 35.1 % (37.0-47.0); HEMOGLOBIN 11.6 g/dl (12.0-16.0)
[2019-09-23 13:11] LABS: ALBUMIN 4.7 g/dL (3.2-5.0); ALKALINE PHOSPHATASE 114 u/l (38-126); AMYLASE 49 u/l (30-110); ANION GAP 18 (6-22 (CALC)); BILIRUBIN, TOTAL 0.6 mg/dL (0.0-1.4); BUN 14 mg/dL (7-17); BUN/CREATININE RATIO 29 (12-20 (CALC)); CARBON DIOXIDE 23 mmol/l (22-30); CHLORIDE 100 mmol/l (95-108); CREATININE 0.5 mg/dL (0.5-1.0); GFR > 60 ML/MIN (>=60 (CALC)); GFR FOR AFR.AMER. > 60 ML/MIN (>=60 (CALC)); LIPASE 30 u/l (23-300); POTASSIUM 4.2 mmol/l (3.5-5.1); SGOT/AST 32 u/l (14-36); SODIUM 137 mmol/l (137-146); TOTAL PROTEIN 8.3 g/dL (6.3-8.2)
[2019-09-23 15:09] LABS: URINE BLOOD DIPSTICK LARGE (NEGATIVE); URINE GLUCOSE - DIPSTICK >=1000 mg/dL (NEGATIVE); URINE KETONE 40 mg/dL (NEGATIVE); URINE LEUK ESTERASE TRACE (NEGATIVE); URINE NITRITE - DIPSTICK NEGATIVE (Negative); URINE PROTEIN - DIPSTICK 100 mg/dL (NEG-TRACE); URINE SPECIFIC GRAVITY 1.025; URINE UROBILINOGEN - DIPSTICK 0.2 E.U./dL (0.2)
[2019-09-23 15:11] LABS: URINE BILIRUBIN - DIPSTICK NEGATIVE (NEGATIVE); URINE COLOR AMBER
[2019-09-23 15:13] LABS: BARBITURATES NEGATIVE (NEGATIVE); COCAINE NEGATIVE (NEGATIVE); METHADONE NEGATIVE (NEGATIVE); OXCYCODONE NEGATIVE (NEGATIVE); TETRAHYDROCANNABIONOL NEGATIVE (NEGATIVE); TRICYLIC ANTIDEPRESSANTS NEGATIVE (NEGATIVE)
[2019-09-23 15:15] LABS: URINE RBC TNTC RBC/hpf (0-5); URINE SQUAMOUS EPITHELIAL CELL FEW EPI/hpf (0-FEW)
[2019-09-23 18:57] VITALS: BP 96/63
== END 2019-09-23 23:57 | disposition short-term general hospital (02) ==
LOC: ED 11:49 → ED-I 12:44 → ED 12:44 → ED-I 15:16 → ED 15:23 → MS2 15:34
PROVIDERS: Family Medicine; ADMIT Surgery; ATTEND Surgery
DX: S31.41XA Laceration without foreign body of vagina and vulva, initial encounter (principal); K66.8 Other specified disorders of peritoneum; E11.9 Type 2 diabetes mellitus without complications; E03.9 Hypothyroidism, unspecified; F17.210 Nicotine dependence, cigarettes, uncomplicated; W18.30XA Fall on same level, unspecified, initial encounter
CPT/HCPCS: J0131; J2710; Q9967